=== PATIENT | female | born 1990 | race Caucasian/White ===

== ENCOUNTER 2023-05-23 05:54 | Day surgery (SDC) | payer OTHER ==
[2023-05-22 12:41] VITALS: BMI 38.7
[2023-05-23] MEDS ORDERED: PROPOFOL 20 ML ONE (07:26)
[2023-05-23] MEDS ORDERED: Midazolam HCl 2 mg/2 ml Vial ONE (07:26)
[2023-05-23] MEDS ORDERED: PROPOFOL 60 ML ONE (07:51)
== END 2023-05-23 08:46 | disposition home or self-care (01) ==
LOC: CSHSDC 05:54
PROVIDERS: ATTEND Internal Medicine Gastroenterology
PROC: 0DBH8ZX Excision of Cecum, Via Natural or Artificial Opening Endoscopic, Diagnostic (ICD-10-PCS; principal; 2023-05-23)
DX: K62.5 Hemorrhage of anus and rectum (principal); K21.9 Gastro-esophageal reflux disease without esophagitis; F10.90 Alcohol use, unspecified, uncomplicated; K58.9 Irritable bowel syndrome, unspecified; K64.9 Unspecified hemorrhoids; K63.3 Ulcer of intestine; Z87.891 Personal history of nicotine dependence
CPT/HCPCS: 88305; J2250; J2704